=== PATIENT | female | born 1970 | race Hispanic/Latino ===

== ENCOUNTER 2019-03-19 14:29 | Emergency (ER) | payer BC, MEDICARE ==
[2019-03-19] MEDS ORDERED: BENADRYL IV ONE (14:48)
[2019-03-19] MEDS ORDERED: DECADRON IV ONE (14:48)
[2019-03-19] MEDS ORDERED: XYLOCAINE TOPICAL 4% TP ONE (14:48)
[2019-03-19] MEDS ORDERED: REGLAN IV ONE (14:48)
[2019-03-19] MEDS ORDERED: FIORICET PO ONE ×2 (14:49→16:00)
[2019-03-19] MEDS ORDERED: MAGNESIUM SULFATE 2GM/50ML 2 GM/50 ML BAG IV ONE (14:49)
--- NOTE | 2019-03-19 14:53 | Event Note ---
Date: 03/19/19 Medical screening note: 48-year-old female with reported history of "brain tumor", presenting with acute on chronic headache exacerbation. Moving 4 extremities spontaneously. Laboratory studies, CT scan of the brain ordered, appropriate headache medication ordered. 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 [phone] [facility] [address]
--- NOTE | 2019-03-19 15:38 | Cat Scan Report ---
CT HEAD WITHOUT CONTRAST HISTORY: Headache, history of brain tumor, syncope for one day. COMPARISON: None TECHNIQUE: CT images of the head were obtained without contrast. CONTRAST: None. FINDINGS: Cerebral and Cerebellar Hemispheres: No evidence of mass or mass effect. No midline shift. No acute hemorrhage. No acute cortical infarction. No extra-axial fluid collection. Ventricles: Normal in size and configuration for age. Osseous Structures: No significant abnormality. Visualized Paranasal Sinuses: No significant abnormality. Additional Findings: None IMPRESSION: 1. Cranial CT scan within normal limits. No evidence for brain tumor. Signer Name: Gino Jordan Jr, MD Signed: 03/19/2019 2:34 PM Workstation Name: [id number]
[2019-03-19 16:08] LABS: Hematocrit 40.7 % (30.3-42.9); Mean Corpuscular HGB Conc 34 % (30-34); Mean Corpuscular Volume 88 fl (79-97); Platelet Count 257 K/mm3 (140-440); Red Blood Count 4.64 M/mm3 (3.65-5.03); Red Cell Distribution Width 13.6 % (13.2-15.2)
[2019-03-19 16:24] LABS: BUN/Creatinine Ratio 12; Blood Urea Nitrogen 6 mg/dL (7-17); Calcium 9.2 mg/dL (8.4-10.2); Hemolysis Index 7
--- NOTE | 2019-03-19 16:27 | Emergency Department Report ---
ED Headache HPI - General Chief Complaint: Headache Stated Complaint: HEADACHE Time Seen by Provider: 03/19/19 16:11 Source: patient - History of Present Illness Initial Comments: 48-year-old female presents to the ED with headache, she is traveling from out of town, and this morning started having severe frontal headache, 10 out of 10, sharp, without radiation. Patient denies any fever or chills or night sweats but does complain of nausea. She gets similar episode intermittently for the past 3 years stating that she was diagnosed with a brain tumor years ago. Quality: moderate Head Injury Location: frontal Recent Head Trauma: no recent headache/trauma Modifying Factors: improves with: rest Associated Symptoms: fatigue Allergies/Adverse Reactions: Allergies amoxicillin Allergy (Verified 03/19/19 14:48) Unknown Home Medications: Ambulatory Orders Butalb/Acetaminophen/Caffeine [Fioricet 50-300-40 mg CAP] 1 cap PO Q8HR PRN #9 cap 03/19/19 ED Review of Systems ROS: Stated complaint: HEADACHE Other details as noted in HPI Comment: All other systems reviewed and negative Eyes: denies: eye pain ENT: denies: as per HPI, ear pain Endocrine: denies: flushing, intolerance to cold Gastrointestinal: denies: nausea, vomiting Genitourinary: denies: dysuria Neurological: headache ED Past Medical Hx - Past Medical History Previous Medical History?: Yes Additional medical history: pancreatitis, lupus - Social History Smoking Status: Unknown if ever smoked - Medications Home Medications: Home Medications Medication Instructions Recorded Confirmed Last Taken Type Butalb/Acetaminophen/Caffeine 1 cap PO Q8HR PRN #9 cap 03/19/19 Unknown Rx [Fioricet 50-300-40 mg CAP] ED Physical Exam - General Limitations: No Limitations, Language Barrier General appearance: alert, in no apparent distress - Head Head exam: Present: atraumatic, normocephalic - Eye Eye exam: Present: normal appearance, PERRL, EOMI - ENT ENT exam: Present: normal exam, normal orophraynx - Neck Neck exam: Present: normal inspection - Respiratory Respiratory exam: Present: normal lung sounds bilaterally - Cardiovascular Cardiovascular Exam: Present: regular rate, normal rhythm - GI/Abdominal GI/Abdominal exam: Present: soft ED Course Vital Signs 03/19/19 03/19/19 14:49 15:41 Temperature 98.4 F Pulse Rate 87 Respiratory 15 Rate Blood Pressure 100/80 113/64 [Left] O2 Sat by Pulse 97 Oximetry Patient received several aliquots of the medications are headache in ED. Pain control. Will DC home for follow-up with PCP. ED Medical Decision Making - Lab Data Result diagrams: 03/19/19 15:40 03/19/19 15:40 Critical care attestation.: If time is entered above; I have spent that time in minutes in the direct care of this critically ill patient, excluding procedure time. ED Disposition Clinical Impression: Acute nonintractable headache Qualifiers: Headache type: tension-type Qualified Code(s): G44.209 - Tension-type headache, unspecified, not intractable Disposition: DC-01 TO HOME OR SELFCARE Is pt being admited?: No Does the pt Need Aspirin: No Condition: Stable Instructions: Cluster Headache (ED) Prescriptions: Butalb/Acetaminophen/Caffeine [Fioricet 50-300-40 mg CAP] 1 cap PO Q8HR PRN #9 cap PRN Reason: Headache
[2019-03-19 16:40] VITALS: BP 122/65
== END 2019-03-19 16:40 | disposition home or self-care (01) ==
LOC: ED 14:29
DX: G44.209 Tension-type headache, unspecified, not intractable (principal); M32.9 Systemic lupus erythematosus, unspecified; Z88.1 Allergy status to other antibiotic agents
CPT/HCPCS: 36415; 70450; 80048; 82550; 83735; 85027; 85730; 96365; 96375; 99285; J1100; J1200; J2765; J3475